=== PATIENT | female | born 1965 | race Caucasian/White ===

== ENCOUNTER 2016-09-09 08:30 | Day surgery (SDC) | payer OTHER ==
[2016-09-09] MEDS ORDERED: LIDOCAINE 1% 30 ML SDV IF ONE (10:00)
--- NOTE | 2016-09-09 10:54 | SUROPNOTE ---
[facility] Operative Report - Surgery PROCEDURE: Linq implant INDICATION: CVA with unknown etiology PROCEDURE DETAILS: After consent was obtained, the patient was placed on table in usual sterile fashion. Localization of the 2nd and 3rd intercostal space by palpitation. Lidocaine (1%) was used for local anesthetic to the left pectoral region (2/3 intercostal space). A #12 blade was used for initial incision followed by the provided blade for proper width. The LINQ rail delivery system was inserted without difficulty and the LINQ (SN: [id number]) was implanted without difficulty. No complications were noted. Patient to follow up with cardiology in 5-7 days
== END 2016-09-09 10:55 | disposition home or self-care (01) ==
LOC: FCATH 08:30
PROVIDERS: ATTEND Internal Medicine Cardiovascular Disease
PROC: 0JH632Z Insertion of Monitoring Device into Chest Subcutaneous Tissue and Fascia, Percutaneous Approach (ICD-10-PCS; principal; 2016-09-09)
DX: Z86.73 Personal history of transient ischemic attack (TIA), and cerebral infarction without residual deficits (principal); G43.109 Migraine with aura, not intractable, without status migrainosus; I10 Essential (primary) hypertension; K21.9 Gastro-esophageal reflux disease without esophagitis; E78.5 Hyperlipidemia, unspecified; Z79.82 Long term (current) use of aspirin
CPT/HCPCS: C1764

== ENCOUNTER → 2017-02-06 | Outpatient (CLI) | payer OTHER | LOC: CIMAGING 12:03 | PROVIDERS: ATTEND Family Medicine | DX: Z12.31 Encounter for screening mammogram for malignant neoplasm of breast (principal) | CPT/HCPCS: G0202 ==

== ENCOUNTER → 2017-07-16 | Outpatient (CLI) | payer OTHER | LOC: BMCIMAGING 08:57 | PROVIDERS: ATTEND Podiatrist Foot & Ankle Surgery | DX: M79.671 Pain in right foot (principal); M77.31 Calcaneal spur, right foot ==

== ENCOUNTER → 2018-07-06 | Outpatient (CLI) | payer OTHER | LOC: FIMAGING 08:13 | PROVIDERS: ATTEND Physician Assistant | DX: R13.10 Dysphagia, unspecified (principal); K21.9 Gastro-esophageal reflux disease without esophagitis; K44.9 Diaphragmatic hernia without obstruction or gangrene ==

== ENCOUNTER → 2018-07-08 | Outpatient (CLI) | payer OTHER | PROVIDERS: ATTEND Physician Assistant | DX: R13.10 Dysphagia, unspecified (principal); K21.9 Gastro-esophageal reflux disease without esophagitis; K44.9 Diaphragmatic hernia without obstruction or gangrene | CPT/HCPCS: 92611-GN ==